=== PATIENT | female | born 1990 | race Caucasian/White ===

== ENCOUNTER 2016-03-26 06:35 | Emergency (ER) | payer OTHER | END 2016-03-26 07:05 | disposition home or self-care (01) | LOC: MADERS 06:35 | DX: K08.89 Other specified disorders of teeth and supporting structures (principal); F41.9 Anxiety disorder, unspecified; Z87.891 Personal history of nicotine dependence | CPT/HCPCS: 99282 ==

== ENCOUNTER 2016-07-01 16:49 | Emergency (ER) | payer OTHER, SELFPAY ==
[2016-07-01] MEDS ORDERED: Tetracaine 0.5% OPHTH SOLN/PF 4 ML BOT ONE (17:07)
[2016-07-01] MEDS ORDERED: HYDROcodone/Acetaminophen 10/325 mg Tablet ONE (17:52)
[2016-07-01] MEDS ORDERED: Gentamicin Ophth Ointment 0.3% 3.5 gm Tube ONE (17:52)
[2016-07-01] MEDS ORDERED: Adenosine 6 MG/2 ML VIAL ONE (21:04)
== END 2016-07-01 18:10 | disposition home or self-care (01) ==
LOC: MADERS 16:49
DX: H18.822 Corneal disorder due to contact lens, left eye (principal); H10.89 Other conjunctivitis; F41.9 Anxiety disorder, unspecified
CPT/HCPCS: 99283; J0153

== ENCOUNTER 2017-11-18 15:41 | Emergency (ER) | payer SELFPAY ==
[2017-11-18] MEDS ORDERED: Triple Antibiotic Oint 1 GM Packet ONE (16:27)
== END 2017-11-18 16:35 | disposition home or self-care (01) ==
LOC: MADERS 15:41
DX: L03.011 Cellulitis of right finger (principal); F41.9 Anxiety disorder, unspecified; F17.210 Nicotine dependence, cigarettes, uncomplicated
CPT/HCPCS: 26010; J2001

== ENCOUNTER 2018-02-20 23:21 | Emergency (ER) | payer MEDICAID, SELFPAY ==
[2018-02-21] MEDS ORDERED: predniSONE 20 MG TAB ONE (00:34)
--- NOTE | 2018-02-21 08:24 | RAD ---
AP CHEST: History: Dyspnea. Date: 02-21-18 FINDINGS: The lungs are well aerated. No evidence of active intrathoracic disease seen. No evidence of effusion s, pneumonia, or pneumothorax seen. IMPRESSION: Unremarkable AP chest. POS: [id number]
== END 2018-02-21 00:45 | disposition home or self-care (01) ==
LOC: MADERS 23:21
DX: J06.9 Acute upper respiratory infection, unspecified (principal); F41.9 Anxiety disorder, unspecified; F17.210 Nicotine dependence, cigarettes, uncomplicated; Z79.899 Other long term (current) drug therapy
CPT/HCPCS: 71045; 87804; J7506